=== PATIENT | female | born 1960 | race African-American/Black ===

== ENCOUNTER 2016-10-24 16:09 | Emergency (ER) | payer OTHER, MEDICAID ==
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
[2016-10-24] MEDS ORDERED: HYDROCODONE/ACETAMINOPHEN 5-325 MG TABLET PO ONE (19:17)
[2016-10-24 20:02] VITALS: BP 189/108
== END 2016-10-24 19:29 | disposition home or self-care (01) ==
LOC: ER 16:09
DX: M54.2 Cervicalgia (principal); M54.6 Pain in thoracic spine; M79.601 Pain in right arm; V73.5XXA Driver of bus injured in collision with car, pick-up truck or van in traffic accident, initial encounter
CPT/HCPCS: 99283; 70450; 72125; L0120

== ENCOUNTER → 2016-10-24 | Outpatient (CLI) | payer MEDICAID ==
--- NOTE | 2016-10-24 15:29 | WOMENS IMAGING REPORT ---
EXAM DESCRIPTION: RIGHT DIAGNOSTIC MAMMO W/CAD COMPLETED DATE/TIME: 10/24/2016 12:29 pm REASON FOR STUDY: R92.2, INCONCLUSIVE MAMMO (RIGHT) R92.2 INCONCLUSIVE MAMMOGRAM COMPARISON: Screening mammo 09/20/2016, 02/13/2012 TECHNIQUE: Craniocaudal imaging bright breast recorded using digital acquisition and breast tomosynt hesis. Right breast 90 mediolateral mammograms LIMITATIONS: None. FINDINGS: RIGHT BREAST MASSES: No suspicious masses. CALCIFICATIONS: No new or suspicious calcifications. ARCHITECTURAL DISTORTION: None. DEVELOPING DENSITY: None. ASYMMETRY: None noted. OTHER: No other significant findings. Read with the assistance of CAD: .[facility] - R2 Cenova Version 1.3 .[facility] - R2 Cenova Version 1.3 .[facility] - R2 Cenova Version 2.4 .[facility] - R2 Cenova Version 2.4 .[facility] - R2 Social Contact Worker Version 9.2 BREAST DENSITY: b. There are scattered areas of fibroglandular density. BIRAD: 2 Benign findings. RECOMMENDATION: RECOMMENDED FOLLOW UP: Please continue yearly bilateral mammographic screening in 2016 SPECIFIC INTERVENTION/IMAGING/CONSULTATION RECOMMENDED:No additional intervention/ imaging/consultati on needed at this time. COMMUNICATION:The patient notified by letter COMMENT: PATIENT NOTIFIED BY LETTER. The [employer] (ACR) has developed recommendations for screening MRI of the breast s in certain patient populations, to be used in conjunction with mammography. Breast MRI surveillanc e may be appropriate for women with more than 20% lifetime risk of developing breast cancer as deter mined by genetic testing, significant family history of the disease, or history of mantle radiation f or Hodgkins Disease. ACR Practice Guidelines 2008. DBT Technology DBT is a type of tomographic mammography. With conventional mammography, overlapping breast tissue ma y make lesions difficult to detect, even with good compression. DBT uses an x-ray tube that rotates a round the breast, taking images at different angles. These images are then combined to create thin sl ices of the breast that the radiologist can view as a 3D reconstruction. The [place] [place] [employer] unit can perform full-field digital mammograms (2D imaging); or DBT (3D imaging); or both, in a combination mode that quickly performs both the mammogram and the tomosynthesis scan while the breast is still compressed. PQRS 6045F: Fluoroscopic imaging is not utilized for breast tomosynthesis. TECHNICAL DOCUMENTATION: FINDING NUMBER: (1) ASSESSMENT: (1) JOB ID: [id number] [employer]- All Rights Reserved
== END ==
LOC: WI 12:14
PROVIDERS: ATTEND Orthopaedic Surgery
DX: R92.2 Inconclusive mammogram (principal)
CPT/HCPCS: G0204-52

== ENCOUNTER → 2016-11-13 | Outpatient (CLI) | payer MEDICAID ==
[2016-11-13 13:01] LABS: FREE T3 4.28 pg/mL (2.77-5.27)
[2016-11-13 13:15] LABS: THYROID STIMULATING HORMONE 0.24 uIU/mL (0.47-4.68)
== END ==
LOC: OD 11:51
PROVIDERS: ATTEND Surgery
DX: E89.0 Postprocedural hypothyroidism (principal)
CPT/HCPCS: 36415; 84439; 84443; 84481

== ENCOUNTER 2016-12-13 12:16 | Day surgery (SDC) | payer MEDICAID ==
[2016-12-12 12:51] LABS: HEMATOCRIT 41.4 % (36.0-47.0); HEMOGLOBIN 13.8 g/dL (12.0-15.5); MEAN CORPUSCULAR HEMOGLOBIN 30.1 pg (27.0-33.4); MEAN CORPUSCULAR HGB CONC 33.3 g/dL (32.0-36.0); MEAN CORPUSCULAR VOLUME 90 fl (80-97); RED BLOOD COUNT 4.58 10^6/uL (3.72-5.28); WHITE BLOOD COUNT 5.4 10^3/uL (4.0-10.5)
[2016-12-12 13:08] LABS: ANION GAP 11 (5-19); BLOOD UREA NITROGEN 13 mg/dL (7-20); CALCIUM 10.2 mg/dL (8.4-10.2); CARBON DIOXIDE 29 mmol/L (22-30); CHLORIDE 104 mmol/L (98-107); CREATININE RESULT 0.82 mg/dL (0.52-1.25); GLUCOSE 76 mg/dL (75-110); POTASSIUM 4.4 mmol/L (3.6-5.0); SODIUM 143.7 mmol/L (137-145)
--- NOTE | 2016-12-13 11:18 | EKG REPORT ---
SEVERITY:- ABNORMAL ECG - SINUS RHYTHM CONSIDER LEFT VENTRICULAR HYPERTROPHY BORDERLINE INFERIOR Q WAVES : Confirmed by: Gustavo Washington 13-Dec-2016 11:17:52
[~2016-12-13 12:16] MED LIST: DEXAMETHASONE SOD PHOSPHATE INJ 4 MG/1 ML VIAL ONE; LACTATED RINGERS 1000 ML IV PRN; LIDOCAINE 0.5% INJ-PF (5 MG/ML) 50 ML SDV SUBCUT PRN; LIDOCAINE 2% INJ-PF (20 MG/ML) 10 ML AMPUL ONE; METOCLOPRAMIDE HCL INJ/PF 10 MG/2 ML SDV ONE; ONDANSETRON HCL INJ/PF 4 MG/2 ML SDV ONE; SUCCINYLCHOLINE CHLORIDE INJ 200 MG/10 ML VIAL ONE
[2016-12-13] MEDS ORDERED: FENTANYL CITRATE INJ/PF 100 MCG/2 ML AMPUL ONE (13:42)
[2016-12-13] MEDS ORDERED: BUPIVACAINE HCL 0.5%/EPI 1:200000 INJ 1.8 ML CARTRIDGE ONE (13:42)
[2016-12-13] MEDS ORDERED: LIDOCAINE 2%/EPINEPHRINE INJ 1.7 ML CARTRIDGE ONE (13:42)
[2016-12-13] MEDS ORDERED: MIDAZOLAM 2 MG/2 ML INJ ONE (13:43)
[2016-12-13] MEDS ORDERED: DEXMEDETOMIDINE INJ 80 MCG/20 ML VIAL IV ONE (13:43)
[2016-12-13] MEDS ORDERED: PROPOFOL INJ 200 MG/20 ML VIAL IV ONE (13:43)
[2016-12-13] MEDS ORDERED: FENTANYL CITRATE INJ/PF 100 MCG/2 ML AMPUL IV PRN ×3 (14:21)
[2016-12-13] MEDS ORDERED: MEPERIDINE HCL/PF INJ 25 MG/1 ML DISP.SYRIN IV PRN (14:21)
[2016-12-13] MEDS ORDERED: DIPHENHYDRAMINE HCL 50 MG/ML VIAL IV PRN (14:21)
[2016-12-13] MEDS ORDERED: MORPHINE SULFATE 10 MG/ML INJ IV PRN (14:21)
[2016-12-13] MEDS ORDERED: OXYCODONE-ACETAMINOPHEN 5-325 MG TABLET PO PRN ×3 (14:21→15:28)
[2016-12-13] MEDS ORDERED: PROMETHAZINE HCL INJ 25 MG/1 ML VIAL IV PRN ×2 (14:21)
--- NOTE | 2016-12-13 14:41 | Operative Report ---
Operative Report DATE OF SURGERY: 12/13/16 PREOPERATIVE DIAGNOSIS: Dental caries POSTOPERATIVE DIAGNOSIS: Same OPERATION: Surgical removal of teeth numbers 13, 14 and 32 and alveoloplasty of the upper left quadrants SURGEON: IDA CHO ANESTHESIA: GA TISSUE REMOVED OR ALTERED: Teeth which were discarded COMPLICATIONS: None ESTIMATED BLOOD LOSS: 20 mL INTRAOPERATIVE FINDINGS: Nonrestorable teeth PROCEDURE: The patient was brought into operating room #3 and placed on the operating room table in supine position. General anesthesia was induced via a peripheral IV and continued utilizing endotracheal intubation. The patient was then prepped and draped in usual fashion for an intraoral procedure. 3 carpules of 2% lidocaine with 1:100,000 epinephrine and 1 carpule of half percent Marcaine with 1:200,000 epinephrine were delivered to the planned surgical sites via both infiltration and nerve block. The oral cavity and oropharynx were suctioned and a moistened oropharyngeal throat pack was placed. A bite block was used the procedure. Full-thickness mucoperiosteal flaps were then developed. These were via envelope incisions in the maxilla and a buccal hockey stick incision in the mandible. Ostectomy was completed as needed. Teeth numbers 14 and 32 were sectioned. The teeth were then delivered using elevators and forceps. The sockets were curetted free of any debris and irrigated with normal saline solution. The flaps were reapproximated and sutured with 4-0 chromic gut suture. There was no sinus communication noted. The mandible was intact postoperatively. The nerves were not seen. The oral cavity was suctioned, the throat pack was removed and the oropharynx suctioned. Gauze packs were placed bilaterally to aid in continued hemostasis. The patient was awakened from general anesthesia, extubated in the operating room and taken recovery room in spontaneous breathing fashion.
[2016-12-13] MEDS ORDERED: METOPROLOL TARTRATE PF/INJ 5 MG/5 ML SDV IV ONE (16:14)
[2016-12-13 17:50] VITALS: BP 149/100
== END 2016-12-13 17:40 | disposition home or self-care (01) ==
LOC: OROUT 12:16
PROVIDERS: ATTEND Dentist Oral and Maxillofacial Surgery
PROC: 0CDWXZ1 Extraction of Upper Tooth, Multiple, External Approach (ICD-10-PCS; 2016-12-13)
PROC: 0NQSXZZ (ICD-10-PCS; principal; 2016-12-13 14:00)
DX: K02.9 Dental caries, unspecified (principal); I10 Essential (primary) hypertension; E89.0 Postprocedural hypothyroidism; Z79.899 Other long term (current) drug therapy
CPT/HCPCS: 93005; 36415; 85027; 80048; 93010; 41899; 41874; J2250; J3490 ×4; J1100; J3010; J2765; J0330; J2405; J2704; 170

== ENCOUNTER 2017-03-13 10:16 | Day surgery (SDC) | payer MEDICAID ==
--- NOTE | 2017-03-11 09:42 | EKG REPORT ---
SEVERITY:- ABNORMAL ECG - SINUS RHYTHM PROBABLE LEFT VENTRICULAR HYPERTROPHY BORDERLINE INFERIOR Q WAVES : Confirmed by: Gustavo Washington 11-Mar-2017 09:41:51
[2017-03-11 09:51] LABS: HEMATOCRIT 40.8 % (36.0-47.0); HEMOGLOBIN 13.1 g/dL (12.0-15.5); HGB HCT DIFFERENCE -1.5; MEAN CORPUSCULAR HEMOGLOBIN 29.4 pg (27.0-33.4); MEAN CORPUSCULAR HGB CONC 32.1 g/dL (32.0-36.0); MEAN CORPUSCULAR VOLUME 92 fl (80-97); RED BLOOD COUNT 4.46 10^6/uL (3.72-5.28); RED CELL DISTRIBUTION WIDTH 13.5 % (11.5-14.0); WHITE BLOOD COUNT 4.6 10^3/uL (4.0-10.5)
[~2017-03-13 10:16] MED LIST changes: +CEFAZOLIN 1 GM/D5W RTU 1 GM/50 ML RTUPB IV PRN; -DEXAMETHASONE SOD PHOSPHATE INJ 4 MG/1 ML VIAL ONE; +LIDOCAINE 1% INJ-PF (10 MG/ML) 30 ML SDV ONE; -LIDOCAINE 2% INJ-PF (20 MG/ML) 10 ML AMPUL ONE; -METOCLOPRAMIDE HCL INJ/PF 10 MG/2 ML SDV ONE; -ONDANSETRON HCL INJ/PF 4 MG/2 ML SDV ONE; -SUCCINYLCHOLINE CHLORIDE INJ 200 MG/10 ML VIAL ONE
[2017-03-13 10:56] VITALS: BP 180/123
[2017-03-13] MEDS ORDERED: HYDROCHLOROTHIAZIDE 12.5 MG CAPSULE PO ONE (12:00)
[2017-03-13] MEDS ORDERED: LISINOPRIL 10 MG TABLET PO ONE (12:00)
[2017-03-13] MEDS ORDERED: FENTANYL CITRATE INJ/PF 100 MCG/2 ML AMPUL ONE (12:03)
[2017-03-13] MEDS ORDERED: MIDAZOLAM 2 MG/2 ML INJ ONE (12:03)
[2017-03-13] MEDS ORDERED: FENTANYL CITRATE INJ/PF 250 MCG/5 ML AMPULE ONE (12:03)
[2017-03-13] MEDS ORDERED: MORPHINE SULFATE 10 MG/ML INJ ONE (12:04)
[2017-03-13] MEDS ORDERED: ACETAMINOPHEN 0 ML IV ONE (12:04)
[2017-03-13] MEDS ORDERED: PROPOFOL INJ 200 MG/20 ML VIAL IV ONE (12:04)
== END 2017-03-13 13:20 | disposition home or self-care (01) ==
LOC: OROUT 10:16
PROVIDERS: ATTEND Surgery
DX: L98.7 Excessive and redundant skin and subcutaneous tissue (principal); I10 Essential (primary) hypertension; E89.0 Postprocedural hypothyroidism; Z01.818 Encounter for other preprocedural examination
CPT/HCPCS: 93005; 36415; 85027; 93010; J2250; J0690; J3490; J0131; J2270; J2704; J3010

== ENCOUNTER 2017-05-29 08:36 | Day surgery (SDC) | payer MEDICAID ==
[2017-05-23 09:23] LABS: HEMATOCRIT 41.7 % (36.0-47.0); HGB HCT DIFFERENCE 0.3; MEAN CORPUSCULAR HEMOGLOBIN 30.6 pg (27.0-33.4); MEAN CORPUSCULAR HGB CONC 33.5 g/dL (32.0-36.0); MEAN CORPUSCULAR VOLUME 91 fl (80-97); RED BLOOD COUNT 4.57 10^6/uL (3.72-5.28); RED CELL DISTRIBUTION WIDTH 13.8 % (11.5-14.0); WHITE BLOOD COUNT 4.4 10^3/uL (4.0-10.5)
--- NOTE | 2017-05-23 21:29 | EKG REPORT ---
SEVERITY:- ABNORMAL ECG - SINUS RHYTHM CONSIDER LEFT VENTRICULAR HYPERTROPHY BORDERLINE INFERIOR Q WAVES ANTERIOR ST ELEVATION, PROBABLY DUE TO LVH : Confirmed by: Gustavo Washington 23-May-2017 21:28:33
[~2017-05-29 08:36] MED LIST changes: -LACTATED RINGERS 1000 ML IV PRN; +LIDOCAINE 0.5% INJ-PF (5 MG/ML) 50 ML SDV INJ PRN; -LIDOCAINE 0.5% INJ-PF (5 MG/ML) 50 ML SDV SUBCUT PRN; -LIDOCAINE 1% INJ-PF (10 MG/ML) 30 ML SDV ONE; +MICROFIBRILLAR COLLAGEN 1 GM PACK ONE; +RINGERS SOLUTION,LACTATED 1,000 ML IV PRN
[2017-05-29] MEDS ORDERED: MIDAZOLAM 2 MG/2 ML INJ ONE ×2 (09:27→10:51)
[2017-05-29] MEDS ORDERED: FENTANYL CITRATE INJ/PF 100 MCG/2 ML AMPUL ONE (10:51)
[2017-05-29] MEDS ORDERED: IBUPROFEN INJ 800 MG/8 ML VIAL IV ONE (10:51)
[2017-05-29] MEDS ORDERED: EPHEDRINE SULFATE INJ 50 MG/1 ML AMPULE ONE (10:51)
[2017-05-29] MEDS ORDERED: PROPOFOL INJ 200 MG/20 ML VIAL IV ONE (10:51)
[2017-05-29] MEDS ORDERED: HYDROMORPHONE HCL INJ/PF 2 MG/ML AMPULE ONE (10:51)
[2017-05-29] MEDS ORDERED: LIDOCAINE 1% INJ-PF (10 MG/ML) 30 ML SDV ONE ×2 (11:15→11:25)
[2017-05-29] MEDS ORDERED: DIPHENHYDRAMINE HCL 50 MG/ML VIAL IV PRN (11:26)
[2017-05-29] MEDS ORDERED: PROMETHAZINE HCL INJ 25 MG/1 ML VIAL IV PRN (11:26)
[2017-05-29] MEDS ORDERED: FENTANYL CITRATE INJ/PF 100 MCG/2 ML AMPUL IV PRN ×3 (11:26)
[2017-05-29] MEDS ORDERED: MEPERIDINE HCL/PF INJ 25 MG/1 ML DISP.SYRIN IV PRN (11:26)
--- NOTE | 2017-05-29 12:15 | Operative Report ---
Operative Report DATE OF SURGERY: 05/29/17 PREOPERATIVE DIAGNOSIS: Redundant axillary skin and axillary fat bilaterally POSTOPERATIVE DIAGNOSIS: Same with axillary adenopathy OPERATION: Bilateral wide excision of axillary skin and fat pad with limited lymphadenectomy and drain placement SURGEON: DEXTER MAYBERRY [employer] REP: ELSIE OLVERA ANESTHESIA: GA TISSUE REMOVED OR ALTERED: Bilateral axillary skin subcutaneous tissue and lymph nodes COMPLICATIONS: None ESTIMATED BLOOD LOSS: 1 50 cc INTRAOPERATIVE FINDINGS: See below PROCEDURE: Patient was taken to the preop holding area the main operating room general anesthesia was induced. Arms were abducted, cleansed, then prepped draped sterile fashion. Instrumentation was set up for bilateral axillary skin and fat pad removal. Surgical plan and surgical timeout were conducted. We approached the right axilla first. Skin was marked for an elliptical excision of redundant skin and subcutaneous tissue. The skin was anesthetized with 1% lidocaine plain. A generous ellipse was made from the anterior to the posterior axillary line. The skin flaps medially and laterally were elevated, and an elliptical fashion a large portion of skin approximately 16 cm x 8 cm was excised in conjunction with the underlying subcutaneous fat pad; several lymph nodes, enlarged, were submitted with the specimen. Small branching venous tributaries were clipped and cauterized as encountered. This was not a axillary dissection. This was principally and excision of redundant axillary fat. A large Enrique drain was placed in the inferior skin flap secured to skin with 2-0 Prolene suture. Wound closed with running continuous 2 and 3-0 Vicryl suture. The identical procedure was performed on the contralateral left axilla. A second drain was placed and secured to the skin with 2-0 Prolene suture and wound closed again with 2-0 Vicryl suture. Sterile dressings were applied. Patient tolerated the data of the cervical like yourself. Coming her to stay away I dismiss today procedure well, extubated and taken to recovery in stable condition. The physician oral surgery assistant, Ms. Candelaria, provided assistance during this case by: Assisting and port insertion, retracting tissue, instillation of local anesthesia and closure of skin incisions.
[2017-05-29] MEDS ORDERED: ONDANSETRON HCL INJ/PF 4 MG/2 ML SDV IV PRN (12:26)
[2017-05-29] MEDS ORDERED: OXYCODONE-ACETAMINOPHEN 5-325 MG TABLET PO PRN (12:26)
[2017-05-29] MEDS ORDERED: MORPHINE SULFATE 10 MG/ML INJ IV PRN (12:26)
[2017-05-29] MEDS ORDERED: RINGERS SOLUTION,LACTATED 1,000 ML IV PRN (12:26)
--- NOTE | 2017-05-29 12:30 | PDOC DISCHARGE SUMMARY ---
Discharge Summary (SDC) - Discharge Final Diagnosis: Redundant skin and axillary Date of Surgery: 05/29/17 Discharge Date: 05/29/17 Condition: Good Treatment or Instructions: Decreased range of motion of the arms. Educated patient on trained recording and output. Provide extra supplies for dressing changes. Return to clinic [facility] in 1 week. Prescription provided Prescriptions: Ketorolac Tromethamine [Toradol 10 mg Tablet] 10 mg PO Q6HP PRN #20 tablet PRN Reason: Referrals: ROSA YOUNGBLOOD, DIRECTOR OF [employer]ADEMIC SUPPORT[facility] [Primary Care Provider] - Discharge Diet: As Tolerated Discharge Activity: No Lifting Over 10 Pounds, No Lifting/Push/Pulling Home Care Assistance: None Needed Report the Following to Your Physician Immediately: Shortness of Breath, Increase in Pain, Fever over 101 Degrees
[2017-05-29] MEDS ORDERED: ONDANSETRON HCL INJ/PF 4 MG/2 ML SDV ONE (14:16)
[2017-05-29] MEDS ORDERED: DEXAMETHASONE SOD PHOSPHATE INJ 4 MG/1 ML VIAL ONE (14:16)
[2017-05-29 15:18] VITALS: BP 143/91
== END 2017-05-29 14:55 | disposition home or self-care (01) ==
LOC: OROUT 08:36
PROVIDERS: ATTEND Surgery
PROC: 0JBD0ZZ Excision of Right Upper Arm Subcutaneous Tissue and Fascia, Open Approach (ICD-10-PCS; 2017-05-29)
PROC: 07B60ZX Excision of Left Axillary Lymphatic, Open Approach, Diagnostic (ICD-10-PCS; 2017-05-29)
PROC: 07B50ZX Excision of Right Axillary Lymphatic, Open Approach, Diagnostic (ICD-10-PCS; 2017-05-29)
PROC: 0JBF0ZZ Excision of Left Upper Arm Subcutaneous Tissue and Fascia, Open Approach (ICD-10-PCS; principal; 2017-05-29 10:30)
DX: L98.7 Excessive and redundant skin and subcutaneous tissue (principal); R59.9 Enlarged lymph nodes, unspecified; I10 Essential (primary) hypertension; E89.0 Postprocedural hypothyroidism; Z79.899 Other long term (current) drug therapy
CPT/HCPCS: 93005; 36415; 85027; 88305 ×2; 93010; 38500; 15839; J2250; J0690; J1100; J3490 ×2; J3010; J1170; J2405; J2704; J1741; 400

== ENCOUNTER 2020-03-06 09:00 | Emergency (ER) | payer OTHER ==
[2020-03-06] MEDS ORDERED: KETOROLAC TROMETHAMINE 60 MG/2 ML SDV IM ONE (10:28)
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
[2020-03-06 11:40] VITALS: BP 167/98
== END 2020-03-06 11:46 | disposition home or self-care (01) ==
LOC: ER 09:00
DX: M54.9 Dorsalgia, unspecified (principal); M54.5 Low back pain; M25.551 Pain in right hip; M25.521 Pain in right elbow; M25.561 Pain in right knee; M25.562 Pain in left knee; R51 Headache; M79.10 Myalgia, unspecified site; V43.62XA Car passenger injured in collision with other type car in traffic accident, initial encounter; M16.11 Unilateral primary osteoarthritis, right hip; I10 Essential (primary) hypertension
CPT/HCPCS: 99283; 96372; 73080; 73502; 72110; 72070; J1885